=== PATIENT | male | born 1950 ===

== ENCOUNTER 2018-02-17 19:16 | Inpatient (IN) ==
[2018-02-17] MEDS ORDERED: MORPHINE 4 MG/1 ML VIAL IV PRN (21:56)
[2018-02-17] MEDS ORDERED: ALBUTEROL 2.5 MG/3 ML NEB RESP TX PRN (21:56)
[2018-02-17] MEDS ORDERED: GLUCAGON 1 MG VIAL IM PRN (21:56)
[2018-02-17] MEDS ORDERED: DEXTROSE 50% 25 GM/50 ML VIAL IV PRN (21:56)
[2018-02-17] MEDS ORDERED: DOCUSATE SODIUM 100 MG CAPSULE PO PRN (21:56)
[2018-02-17] MEDS: SODIUM CHLORIDE 0.9% 1,000 ML IV SCH (22:22)
[2018-02-17] MEDS ORDERED: DILTIAZEM CD 240 MG CAPSULE PO SCH (22:30)
[2018-02-17 23:33] LABS: Apearance,Urine Slightly Hazy (Clear); Bacteria,Urine Occasional /HPF (Few); Bilirubin,Urine Negative (Negative); Blood, Urine Small mg/dL (Negative); Glucose,Urine (UA) Negative (Negative); Hyaline Casts,Urine 2 /LPF (0-3); Ketones,Urine Negative (Negative); Mucus,Urine Occasional /LPF (Occasional); Nitrite,Urine Negative (Negative); Protein,Urine 30 MG/DL; RBC,Urine <1 /HPF (0-4); Squamous Epithelial Cell,Urine Occasional /HPF (0-10); Urine Color Yellow (Yellow); Urine Specific Gravity 1.012 (1.001-1.035); Urine Urobilinogen < 2.0 EU/DL (0.2-1.0); WBC,Urine 3 /HPF (0-6)
[2018-02-17] MEDS: ATORVASTATIN 20 MG TABLET PO SCH (23:35)
[2018-02-18 00:13] LABS: Basophils # 0.1 10*3/uL (0.0-0.2); Basophils % 0.3 % (0.0-0.8); Eosinophils % 0.2 % (0.00-10.9); Hematocrit 33.4 VOL% (42.0-52.0); Hemoglobin 11.2 GM/DL (14.0-18.0); Immature Granulocytes % 1.6 %; Immature Granulocytes Absolute 0.28 #; Lymphocytes # 0.8 10*3/uL (1.4-4.0); Lymphocytes % 4.3 % (21.2-54.2); Mean Corpuscular HGB Conc 33.5 GM/DL (32-36); Mean Corpuscular Hemoglobin 32 PG (27-34); Mean Corpuscular Volume 95.7 FL (87-102); Mean Platelet Volume 9.8 FL (9.6-12.0); Monocytes % 5.7 % (1.7-12.7); Neutrophils # 15.7 10*3/uL (1.4-7.4); Neutrophils % 87.9 % (38.7-73.9); Platelet Count 253 T/CUMM (130-400); Red Blood Count 3.49 MC/CUMM (3.8-5.5); Red Cell Distribution Width 12.9 % (9.3-17.3); White Blood Count 17.9 T/CUMM (4-12)
[2018-02-18 00:24] LABS: INR 1.1; PT Patient Result 11.7 SECS
[2018-02-18 00:37] LABS: Band Neutrophils 3 % (0-10); Lymphocytes 5 % (20-55); Platelet Estimate Adequate; Segmented Neutrophils 89 % (50-85); Total Cells Counted 100
[2018-02-18 00:42] LABS: Albumin 1.9 G/DL (3.4-5.0); Bilirubin,Total 0.7 MG/DL (0.2-1.0); Calcium 9.1 MG/DL (8.5-10.1); Osmolality,Calculated 262.9 MOS/KG (273-304); Potassium 4.4 MMOL/L (3.5-5.1); Thyroid Stimulating Hormone 0.885 uIU/ml (0.358-3.74); Total Protein 7.6 G/DL (6.4-8.3)
[2018-02-18] MEDS: LEVOFLOXACIN INJ 750 MG in PREMIX 1 EACH IV SCH (00:49)
[2018-02-18] MEDS: ONDANSETRON 4 MG/2 ML VIAL IV PRN ×2 (01:38→17:42)
[2018-02-18] MEDS: ACETAMINOPHEN 325 MG TABLET PO PRN ×3 (01:56→19:27)
[2018-02-18] MEDS: guaiFENesin 200 MG/10 ML UDCUP PO PRN (03:42)
[2018-02-18 05:03] LABS: Basophils % 0.3 % (0.0-0.8); Eosinophils % 0.2 % (0.00-10.9); Hematocrit 29.3 VOL% (42.0-52.0); Hemoglobin 9.9 GM/DL (14.0-18.0); Immature Granulocytes % 1.2 %; Immature Granulocytes Absolute 0.16 #; Lymphocytes # 0.6 10*3/uL (1.4-4.0); Lymphocytes % 4.4 % (21.2-54.2); Mean Corpuscular HGB Conc 33.8 GM/DL (32-36); Mean Corpuscular Hemoglobin 32 PG (27-34); Mean Corpuscular Volume 94.2 FL (87-102); Mean Platelet Volume 9.7 FL (9.6-12.0); Monocytes # 1.1 10*3/uL (0.11-0.8); Monocytes % 7.8 % (1.7-12.7); Neutrophils # 11.7 10*3/uL (1.4-7.4); Neutrophils % 86.1 % (38.7-73.9); Platelet Count 225 T/CUMM (130-400); Red Blood Count 3.11 MC/CUMM (3.8-5.5); Red Cell Distribution Width 12.9 % (9.3-17.3); White Blood Count 13.6 T/CUMM (4-12)
[2018-02-18 05:14] LABS: Lactic Acid 1.5 MMOL/L (0.4-2.0)
[2018-02-18 05:27] LABS: Hypochromasia 1+; Lymphocytes 2 % (20-55); Ovalocytes Slight; Platelet Estimate Adequate; Segmented Neutrophils 92 % (50-85); Total Cells Counted 100
[2018-02-18 05:28] LABS: Calcium 7.7 MG/DL (8.5-10.1); Osmolality,Calculated 260.1 MOS/KG (273-304); Potassium 3.8 MMOL/L (3.5-5.1)
[2018-02-18] MEDS: INSULIN LISPRO 100 UNIT/ML SUBCUT SCH ×4 (08:02→20:50)
[2018-02-18] MEDS: ENOXAPARIN 100 MG/ML SYRINGE SUBCUT SCH ×2 (08:59→21:33)
[2018-02-18] MEDS: metFORMIN 500 MG TABLET PO SCH ×2 (09:00→16:47)
[2018-02-18] MEDS ORDERED: MAGNESIUM SULF RIDER 2 GM in PREMIX 1 EACH IV ONE (09:00)
[2018-02-18] MEDS: PANTOPRAZOLE 40 MG TABLET PO SCH (09:00)
[2018-02-18] MEDS ORDERED: ENOXAPARIN 40 MG/0.4 ML SYRINGE SUBCUT SCH (09:00)
[2018-02-18] MEDS: ASPIRIN EC 81 MG TABLET PO SCH (09:00)
[2018-02-18] MEDS: SODIUM CHLORIDE 0.9% 1,000 ML IV SCH ×2 (09:07→18:51)
[2018-02-18] MEDS ORDERED: BENZONATATE 100 MG CAPSULE PO PRN (10:15)
[2018-02-18] MEDS: DILTIAZEM CD 240 MG CAPSULE PO SCH (20:50)
[2018-02-18] MEDS: ATORVASTATIN 20 MG TABLET PO SCH (20:51)
[2018-02-19] MEDS: LEVOFLOXACIN INJ 750 MG in PREMIX 1 EACH IV SCH ×2 (00:02→23:58)
[2018-02-19] MEDS: guaiFENesin 200 MG/10 ML UDCUP PO PRN ×2 (00:02→23:00)
[2018-02-19] MEDS: SODIUM CHLORIDE 0.9% 1,000 ML IV SCH ×2 (04:05→23:02)
[2018-02-19 07:19] LABS: Basophils % 0.1 % (0.0-0.8); Eosinophils # 0.1 10*3/uL (0.0-0.87); Eosinophils % 0.6 % (0.00-10.9); Hematocrit 28.6 VOL% (42.0-52.0); Hemoglobin 9.7 GM/DL (14.0-18.0); Immature Granulocytes % 1.3 %; Immature Granulocytes Absolute 0.19 #; Lymphocytes # 1.3 10*3/uL (1.4-4.0); Lymphocytes % 9.4 % (21.2-54.2); Mean Corpuscular HGB Conc 33.9 GM/DL (32-36); Mean Corpuscular Hemoglobin 32 PG (27-34); Mean Corpuscular Volume 93.8 FL (87-102); Mean Platelet Volume 9.6 FL (9.6-12.0); Monocytes # 1.4 10*3/uL (0.11-0.8); Monocytes % 9.6 % (1.7-12.7); Neutrophils # 11.2 10*3/uL (1.4-7.4); Platelet Count 237 T/CUMM (130-400); Red Blood Count 3.05 MC/CUMM (3.8-5.5); Red Cell Distribution Width 13.2 % (9.3-17.3); White Blood Count 14.2 T/CUMM (4-12)
[2018-02-19 07:45] LABS: Calcium 8.3 MG/DL (8.5-10.1); Osmolality,Calculated 264.4 MOS/KG (273-304); Potassium 4.1 MMOL/L (3.5-5.1)
[2018-02-19] MEDS: PANTOPRAZOLE 40 MG TABLET PO SCH (08:15)
[2018-02-19] MEDS: ENOXAPARIN 100 MG/ML SYRINGE SUBCUT SCH ×2 (08:15→23:00)
[2018-02-19] MEDS: INSULIN LISPRO 100 UNIT/ML SUBCUT SCH ×4 (08:18→23:01)
[2018-02-19] MEDS: ASPIRIN EC 81 MG TABLET PO SCH (08:18)
[2018-02-19] MEDS: metFORMIN 500 MG TABLET PO SCH ×2 (08:18→17:00)
[2018-02-19] MEDS: DILTIAZEM CD 240 MG CAPSULE PO SCH (22:54)
[2018-02-19] MEDS: ACETAMINOPHEN 325 MG TABLET PO PRN (22:59)
[2018-02-19] MEDS: ATORVASTATIN 20 MG TABLET PO SCH (23:01)
[2018-02-20] MEDS: SODIUM CHLORIDE 0.9% 1,000 ML IV SCH ×3 (06:01→21:21)
[2018-02-20] MEDS ORDERED: METOPROLOL TARTRATE 5 MG/5 ML VIAL IV STA (09:10)
[2018-02-20] MEDS: PANTOPRAZOLE 40 MG TABLET PO SCH (10:15)
[2018-02-20] MEDS: ASPIRIN EC 81 MG TABLET PO SCH (10:15)
[2018-02-20] MEDS: METOPROLOL TARTRATE 25 MG TABLET PO SCH ×2 (10:15→21:16)
[2018-02-20] MEDS: metFORMIN 500 MG TABLET PO SCH ×2 (10:15→16:05)
[2018-02-20] MEDS: ENOXAPARIN 100 MG/ML SYRINGE SUBCUT SCH ×2 (10:15→21:17)
[2018-02-20] MEDS: INSULIN LISPRO 100 UNIT/ML SUBCUT SCH ×4 (10:17→21:18)
[2018-02-20] MEDS: guaiFENesin 200 MG/10 ML UDCUP PO PRN (14:53)
[2018-02-20] MEDS: DILTIAZEM CD 240 MG CAPSULE PO SCH (21:16)
[2018-02-20] MEDS: ATORVASTATIN 20 MG TABLET PO SCH (21:16)
[2018-02-20] MEDS: traZODone 50 MG TABLET PO PRN (21:17)
[2018-02-21] MEDS: LEVOFLOXACIN INJ 750 MG in PREMIX 1 EACH IV SCH (00:33)
[2018-02-21] MEDS: guaiFENesin 200 MG/10 ML UDCUP PO PRN ×3 (00:37→14:55)
[2018-02-21 03:42] LABS: Basophils % 0.5 % (0.0-0.8); Eosinophils # 0.1 10*3/uL (0.0-0.87); Eosinophils % 1.2 % (0.00-10.9); Hematocrit 27.1 VOL% (42.0-52.0); Hemoglobin 9.1 GM/DL (14.0-18.0); Immature Granulocytes % 2.7 %; Immature Granulocytes Absolute 0.23 #; Lymphocytes % 11.2 % (21.2-54.2); Mean Corpuscular HGB Conc 33.6 GM/DL (32-36); Mean Corpuscular Hemoglobin 31 PG (27-34); Mean Corpuscular Volume 93.4 FL (87-102); Mean Platelet Volume 9.5 FL (9.6-12.0); Monocytes # 0.8 10*3/uL (0.11-0.8); Monocytes % 9.2 % (1.7-12.7); Neutrophils # 6.4 10*3/uL (1.4-7.4); Neutrophils % 75.2 % (38.7-73.9); Platelet Count 224 T/CUMM (130-400); Red Cell Distribution Width 13.1 % (9.3-17.3); White Blood Count 8.5 T/CUMM (4-12)
[2018-02-21 04:23] LABS: Calcium 8.1 MG/DL (8.5-10.1); Osmolality,Calculated 268.2 MOS/KG (273-304); Potassium 3.5 MMOL/L (3.5-5.1)
[2018-02-21 04:29] LABS: Albumin 1.4 G/DL (3.4-5.0); Bilirubin,Total 0.7 MG/DL (0.2-1.0); Calcium 8.1 MG/DL (8.5-10.1); Osmolality,Calculated 268.2 MOS/KG (273-304); Potassium 3.5 MMOL/L (3.5-5.1); Total Protein 5.8 G/DL (6.4-8.3)
[2018-02-21] MEDS: INSULIN LISPRO 100 UNIT/ML SUBCUT SCH ×4 (07:43→21:02)
[2018-02-21] MEDS: ENOXAPARIN 100 MG/ML SYRINGE SUBCUT SCH ×2 (08:46→20:55)
[2018-02-21] MEDS: ASPIRIN EC 81 MG TABLET PO SCH (08:47)
[2018-02-21] MEDS: METOPROLOL TARTRATE 25 MG TABLET PO SCH ×2 (08:47→20:54)
[2018-02-21] MEDS: metFORMIN 500 MG TABLET PO SCH ×2 (08:47→16:41)
[2018-02-21] MEDS: PANTOPRAZOLE 40 MG TABLET PO SCH (08:47)
[2018-02-21] MEDS ORDERED: MAGNESIUM SULF RIDER 4 GM in PREMIX 1 EACH IV PRN (09:59)
[2018-02-21] MEDS: MAGNESIUM SULF RIDER 2 GM in PREMIX 1 EACH IV PRN (10:10)
[2018-02-21] MEDS: POTASSIUM CHLORIDE 20 MEQ/15 ML UDCUP PER TUBE PRN ×2 (10:10→12:35)
[2018-02-21] MEDS: SODIUM CHLORIDE 0.9% 1,000 ML IV SCH ×2 (12:03→20:56)
[2018-02-21] MEDS: ATORVASTATIN 20 MG TABLET PO SCH (20:54)
[2018-02-21] MEDS: DILTIAZEM CD 240 MG CAPSULE PO SCH (20:54)
[2018-02-21] MEDS: guaiFENesin/DM ER 600-30 MG TABLET PO PRN (23:32)
[2018-02-22] MEDS: LEVOFLOXACIN INJ 750 MG in PREMIX 1 EACH IV SCH (01:20)
[2018-02-22] MEDS: INSULIN LISPRO 100 UNIT/ML SUBCUT SCH ×4 (08:05→20:54)
[2018-02-22 08:14] LABS: Basophils % 0.3 % (0.0-0.8); Eosinophils # 0.1 10*3/uL (0.0-0.87); Eosinophils % 0.9 % (0.00-10.9); Hematocrit 28.2 VOL% (42.0-52.0); Hemoglobin 9.5 GM/DL (14.0-18.0); Immature Granulocytes % 2.8 %; Immature Granulocytes Absolute 0.29 #; Lymphocytes # 1.2 10*3/uL (1.4-4.0); Lymphocytes % 11.5 % (21.2-54.2); Mean Corpuscular HGB Conc 33.7 GM/DL (32-36); Mean Corpuscular Hemoglobin 32 PG (27-34); Mean Corpuscular Volume 96.2 FL (87-102); Mean Platelet Volume 8.7 FL (9.6-12.0); Monocytes # 0.7 10*3/uL (0.11-0.8); Monocytes % 7.1 % (1.7-12.7); Neutrophils % 77.4 % (38.7-73.9); Platelet Count 235 T/CUMM (130-400); Red Blood Count 2.93 MC/CUMM (3.8-5.5); Red Cell Distribution Width 13.2 % (9.3-17.3); White Blood Count 10.3 T/CUMM (4-12)
[2018-02-22 08:45] LABS: Calcium 8.2 MG/DL (8.5-10.1); Osmolality,Calculated 264.2 MOS/KG (273-304); Potassium 3.9 MMOL/L (3.5-5.1)
[2018-02-22] MEDS: SODIUM CHLORIDE 0.9% 1,000 ML IV SCH ×2 (09:09→20:56)
[2018-02-22] MEDS: metFORMIN 500 MG TABLET PO SCH ×2 (09:18→16:37)
[2018-02-22] MEDS: ASPIRIN EC 81 MG TABLET PO SCH (09:19)
[2018-02-22] MEDS: PANTOPRAZOLE 40 MG TABLET PO SCH (09:19)
[2018-02-22] MEDS: METOPROLOL TARTRATE 25 MG TABLET PO SCH ×2 (09:19→20:53)
[2018-02-22] MEDS: guaiFENesin 200 MG/10 ML UDCUP PO PRN ×2 (09:19→16:57)
[2018-02-22] MEDS: MAGNESIUM SULF RIDER 2 GM in PREMIX 1 EACH IV PRN (12:00)
[2018-02-22] MEDS: ACETAMINOPHEN 325 MG TABLET PO PRN (16:57)
[2018-02-22] MEDS: guaiFENesin/DM ER 600-30 MG TABLET PO PRN (20:53)
[2018-02-22] MEDS: DILTIAZEM CD 240 MG CAPSULE PO SCH (20:53)
[2018-02-22] MEDS: ATORVASTATIN 20 MG TABLET PO SCH (20:53)
[2018-02-22] MEDS: traZODone 50 MG TABLET PO PRN (20:53)
[2018-02-22] MEDS: MAGNESIUM CHLORIDE 64 MG TABLET PO SCH (23:52)
[2018-02-23] MEDS: LEVOFLOXACIN INJ 750 MG in PREMIX 1 EACH IV SCH (02:31)
[2018-02-23] MEDS: SODIUM CHLORIDE 0.9% 1,000 ML IV SCH (05:15)
[2018-02-23] MEDS ORDERED: DIAZEPAM 5 MG TABLET PO ONE (08:52)
[2018-02-23] MEDS: metFORMIN 500 MG TABLET PO SCH ×2 (09:19→16:49)
[2018-02-23] MEDS: INSULIN LISPRO 100 UNIT/ML SUBCUT SCH ×4 (09:19→22:08)
[2018-02-23] MEDS: ASPIRIN EC 81 MG TABLET PO SCH (09:20)
[2018-02-23] MEDS: MAGNESIUM CHLORIDE 64 MG TABLET PO SCH ×2 (09:57→21:40)
[2018-02-23] MEDS: PANTOPRAZOLE 40 MG TABLET PO SCH (09:57)
[2018-02-23] MEDS: METOPROLOL TARTRATE 25 MG TABLET PO SCH ×2 (09:58→21:40)
[2018-02-23] MEDS: CLOTRIMAZOLE 1% CREAM 15 GM TUBE TOP SCH ×2 (18:28→21:41)
[2018-02-23] MEDS: ATORVASTATIN 20 MG TABLET PO SCH (21:40)
[2018-02-23] MEDS: DILTIAZEM CD 240 MG CAPSULE PO SCH (21:40)
[2018-02-24] MEDS: LEVOFLOXACIN INJ 750 MG in PREMIX 1 EACH IV SCH (00:45)
[2018-02-24 04:44] LABS: Basophils % 0.3 % (0.0-0.8); Eosinophils # 0.1 10*3/uL (0.0-0.87); Eosinophils % 0.9 % (0.00-10.9); Hematocrit 26.3 VOL% (42.0-52.0); Hemoglobin 8.6 GM/DL (14.0-18.0); Immature Granulocytes % 2.2 %; Immature Granulocytes Absolute 0.26 #; Lymphocytes # 1.2 10*3/uL (1.4-4.0); Lymphocytes % 9.8 % (21.2-54.2); Mean Corpuscular HGB Conc 32.7 GM/DL (32-36); Mean Corpuscular Hemoglobin 31 PG (27-34); Mean Corpuscular Volume 95.3 FL (87-102); Mean Platelet Volume 8.9 FL (9.6-12.0); Monocytes % 8.2 % (1.7-12.7); NRBC # 0.02 10*3/uL; Neutrophils # 9.5 10*3/uL (1.4-7.4); Neutrophils % 78.6 % (38.7-73.9); Platelet Count 230 T/CUMM (130-400); Red Blood Count 2.76 MC/CUMM (3.8-5.5); Red Cell Distribution Width 13.7 % (9.3-17.3); White Blood Count 12.1 T/CUMM (4-12)
[2018-02-24 05:27] LABS: Calcium 7.6 MG/DL (8.5-10.1); Osmolality,Calculated 275.5 MOS/KG (273-304); Potassium 3.7 MMOL/L (3.5-5.1)
[2018-02-24] MEDS: INSULIN LISPRO 100 UNIT/ML SUBCUT SCH ×2 (08:04→11:20)
[2018-02-24] MEDS: METOPROLOL TARTRATE 25 MG TABLET PO SCH (08:23)
[2018-02-24] MEDS: ASPIRIN EC 81 MG TABLET PO SCH (08:23)
[2018-02-24] MEDS: MAGNESIUM CHLORIDE 64 MG TABLET PO SCH (08:23)
[2018-02-24] MEDS: SODIUM CHLORIDE 0.9% 1,000 ML IV SCH (08:24)
[2018-02-24] MEDS: PANTOPRAZOLE 40 MG TABLET PO SCH (08:24)
[2018-02-24] MEDS: metFORMIN 500 MG TABLET PO SCH (08:24)
[2018-02-24] MEDS ORDERED: cefTRIAXone 2,000 MG in SYRINGE 1 EACH IV SCH (10:30)
[2018-02-24 11:11] VITALS: BP 110/58
== END 2018-02-24 16:38 | disposition home or self-care (01) | DRG 854 ==
LOC: N.ICU 21:20 → SUATTDRO 21:20 → N.5E 02-18 23:15 → N.TELEN 02-20 10:07
PROVIDERS: ADMIT Internal Medicine; ATTEND Internal Medicine